=== PATIENT | male | born 1970 | race American Indian/Alaskan Native ===

== ENCOUNTER 2020-05-03 19:47 | Emergency (ER) | payer BC ==
[2020-05-03] MEDS ORDERED: KETOROLAC 30 MG/1 ML INJ IV ONE (19:54)
[2020-05-03] MEDS ORDERED: DIPHtheria,PERTUSSIS(ACELL),TETANUS VACCINE/PF 0.5 ML VIAL IM ONE (19:54)
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
[2020-05-03] MEDS ORDERED: levoFLOXacin 750 MG TAB PO ONE ×2 (20:59→21:02)
[2020-05-03] MEDS ORDERED: BACITRACIN/POLYMYXIN B OINT 28.35 GM TP ONE (21:11)
[2020-05-03 21:23] VITALS: BP 144/89
== END 2020-05-03 22:15 | disposition home or self-care (01) ==
LOC: ED 19:47
DX: S91.331A Puncture wound without foreign body, right foot, initial encounter (principal); Z79.899 Other long term (current) drug therapy; W34.09XA Accidental discharge from other specified firearms, initial encounter; Y93.89 Activity, other specified; Y92.89 Other specified places as the place of occurrence of the external cause; Y99.8 Other external cause status
CPT/HCPCS: 73630; 90471; 90715; 96374; 99283; J1885